=== PATIENT | female | born 1965 | race Caucasian/White ===

== ENCOUNTER 2016-12-18 11:02 | Inpatient (IN) | payer OTHER ==
[~2016-12-18] VITALS: Ht 172.7 cm; Wt 79.5 kg
[~2016-12-18 11:02] MED LIST: METO25TA91 PO; NORT25CA PO
[2016-12-18] MEDS ORDERED: SODIUM CHLORIDE 0.9% 1,000ML IVBOLUS ONE (11:30)
[2016-12-18] MEDS ORDERED: SODIUM CHLORIDE FLUSH 10ML SYR IVF ONE (11:30)
[2016-12-18] MEDS ORDERED: AMIT10TA PO (11:56)
[2016-12-18 11:58] LABS: BLOOD UREA NITROGEN 45 mg/dL (7-18)
[2016-12-18 12:03] LABS: ASPARTATE AMINO TRANSFERASE 25 U/L (15-37)
[2016-12-18] MEDS ORDERED: PANTOPRAZOLE 80 MG in SODIUM CHLORIDE 0.9% 50 ML IV ONE (12:30)
[2016-12-18] MEDS ORDERED: PANTOPRAZOLE 80 MG in SODIUM CHLORIDE 0.9% 100 ML IV SCH (12:30)
[2016-12-18 12:52] LABS: IS PT STATUS REG ER OR PRE ER? YES
[2016-12-18] MEDS: PANTOPRAZOLE 80 MG in SODIUM CHLORIDE 0.9% 100 ML IV SCH (13:35)
[2016-12-18] MEDS ORDERED: ONDANSETRON 2MG/ML, 2ML IVPush PRN (14:00)
[2016-12-18 14:52] VITALS: BP_SYST 111
[2016-12-18] MEDS ORDERED: FENTANYL PF 100 MCG/2ML ONE (16:03)
[2016-12-18] MEDS ORDERED: MIDAZOLAM 1 MG/ML, 5ML ONE (16:04)
[2016-12-18] MEDS ORDERED: EPINEPHRINE SYRINGE 0.1 MG/ML, 10ML ONE (16:46)
[2016-12-18] MEDS: D5%-0.45NACL+KCL 20MEQ 1,000 ML IV SCH (17:02)
[2016-12-18 17:06] VITALS: BP 109/70
[2016-12-18 19:26] VITALS: BP 124/78
[2016-12-18] MEDS: ACETAMINOPHEN 325 MG TABLET PO PRN (21:20)
[2016-12-18] MEDS: DIPHENHYDRAMINE/ZINC CRM 2%, 30GM TP PRN (23:20)
[2016-12-18] MEDS: morphine SULFATE 10 MG/ML, 1ML IVPush PRN (23:29)
[2016-12-19] MEDS: PANTOPRAZOLE 80 MG in SODIUM CHLORIDE 0.9% 100 ML IV SCH ×3 (00:50→20:43)
[2016-12-19 01:15] VITALS: BP 122/74
[2016-12-19] MEDS: D5%-0.45NACL+KCL 20MEQ 1,000 ML IV SCH ×3 (02:44→23:23)
[2016-12-19] MEDS: morphine SULFATE 10 MG/ML, 1ML IVPush PRN (04:45)
[2016-12-19 05:34] LABS: BLOOD UREA NITROGEN 17 mg/dL (7-18)
[2016-12-19 05:37] LABS: ASPARTATE AMINO TRANSFERASE 17 U/L (15-37)
[2016-12-19 07:30] VITALS: BP 102/62
[2016-12-19] MEDS ORDERED: HYDROcodone/APAP 5/325 TABLET PO PRN (08:30)
[2016-12-19] MEDS ORDERED: PROMETHAZINE 25 MG/ML, 1ML IM PRN (12:30)
[2016-12-19] MEDS ORDERED: ONDANSETRON 2MG/ML, 2ML IVPush PRN (12:30)
[2016-12-19 14:55] VITALS: BP 102/64
[2016-12-19 19:16] VITALS: BP 109/67
[2016-12-19] MEDS: DIPHENHYDRAMINE/ZINC CRM 2%, 30GM TP PRN (20:50)
[2016-12-20 01:44] VITALS: BP 98/61
[2016-12-20 05:56] LABS: TOTAL IRON BINDING CAPACITY 288 mcg/dL (250-450)
[2016-12-20 06:36] VITALS: BP 103/68
[2016-12-20] MEDS: PANTOPRAZOLE 80 MG in SODIUM CHLORIDE 0.9% 100 ML IV SCH (08:31)
[2016-12-20] MEDS ORDERED: OMEP20CA14 PO (09:43)
[2016-12-20] MEDS ORDERED: IRON45TA6 PO (11:29)
[2016-12-20] MEDS ORDERED: DOCU-30 PO (11:31)
[2016-12-20] MEDS: ACETAMINOPHEN 325 MG TABLET PO PRN (12:04)
== END 2016-12-20 12:34 | disposition home or self-care (01) | DRG 378 ==
LOC: ED 12:21 → EDIP 12:22 → ED 12:44 → 4WST 15:04 → DCLOUNGE 12-20 12:15
PROVIDERS: ADMIT Family Medicine; ATTEND Student in an Organized Health Care Education/Training Program
PROC: 0DJ08ZZ Inspection of Upper Intestinal Tract, Via Natural or Artificial Opening Endoscopic (ICD-10-PCS; principal; 2016-12-18 16:00)
DX: K25.4 Chronic or unspecified gastric ulcer with hemorrhage (principal); D62 Acute posthemorrhagic anemia; K21.9 Gastro-esophageal reflux disease without esophagitis; F41.9 Anxiety disorder, unspecified; Z90.49 Acquired absence of other specified parts of digestive tract; Z80.0 Family history of malignant neoplasm of digestive organs; Z82.49 Family history of ischemic heart disease and other diseases of the circulatory system; E78.5 Hyperlipidemia, unspecified; F32.9 Major depressive disorder, single episode, unspecified; Z88.8 Allergy status to other drugs, medicaments and biological substances; Z79.899 Other long term (current) drug therapy
CPT/HCPCS: 36415; 71010; 80053; 83540; 83550; 83690; 84484; 85014; 85018; 85025; 85610; 85730; 86850; 86900; 93005; 99152; 99153; 99285; J2250; J2405; J2550; J3010; C9113; J2270; J3480; J7030

== ENCOUNTER 2019-01-19 22:51 | Emergency (ER) | payer OTHER ==
[~2019-01-19] VITALS: Ht 167.6 cm; Wt 81.9 kg
[2019-01-19 22:53] VITALS: BP 165/91
== END 2019-01-20 00:01 | disposition home or self-care (01) ==
LOC: ED 23:50
DX: B34.9 Viral infection, unspecified (principal); J06.9 Acute upper respiratory infection, unspecified
CPT/HCPCS: 71045; 87081; 87880; 99284

== ENCOUNTER 2019-01-21 22:38 | Emergency (ER) | payer OTHER ==
[~2019-01-21] VITALS: Ht 167.6 cm; Wt 81.9 kg
[~2019-01-21 22:38] MED LIST changes: +AMIT10TA PO; +DOCU-131 PO; +IRON45TA6 PO; -NORT25CA PO; +NORT25CA78 PO; +OMEP20CA14 PO
[2019-01-21 22:39] VITALS: BP 163/82
[2019-01-21] MEDS ORDERED: MAALOX/HYOSCYAMINE/LIDOCAINE 45 ML BTL ONE (23:18)
[2019-01-21] MEDS ORDERED: CEFDINIR 300 MG CAPSULE ONE (23:18)
--- NOTE | 2019-01-21 23:24 | NUR ---
CLARITIN REQUEST FORM TO PHARMACY
[2019-01-21] MEDS ORDERED: OXYMETAZOLINE NASAL SPRAY 0.05%,30ML ONE (23:27)
[2019-01-21] MEDS ORDERED: CEFDINIR 300 MG CAPSULE PO ONE (23:30)
[2019-01-21] MEDS ORDERED: MAALOX/HYOSCYAMINE/LIDOCAINE 45 ML BTL PO ONE (23:30)
[2019-01-21] MEDS ORDERED: LORATADINE/PSE 5/120MG TAB.ER.12H PO ONE (23:30)
[2019-01-21] MEDS ORDERED: KETOROLAC 30 MG/1 ML ONE (23:39)
[2019-01-22] MEDS ORDERED: NEOSPORIN OINT. PKT 1 PACKET ONE (00:16)
[2019-01-22] MEDS ORDERED: OXYMETAZOLINE NASAL SPRAY 0.05%, 15ML NAS ONE (00:30)
[2019-01-22] MEDS ORDERED: KETOROLAC 30 MG/1 ML IM ONE (00:30)
== END 2019-01-22 00:49 | disposition home or self-care (01) ==
LOC: ED 01-22 00:09
DX: H66.003 Acute suppurative otitis media without spontaneous rupture of ear drum, bilateral (principal); J20.9 Acute bronchitis, unspecified; H10.021 Other mucopurulent conjunctivitis, right eye; J00 Acute nasopharyngitis [common cold]; R04.0 Epistaxis
CPT/HCPCS: 96372; 99284; J1885

== ENCOUNTER 2019-01-29 16:19 | Outpatient (CLI) | payer OTHER | END 2019-01-29 23:59 | disposition home or self-care (01) | LOC: LAB 16:19 | PROVIDERS: ATTEND Internal Medicine | DX: R21 Rash and other nonspecific skin eruption (principal) | CPT/HCPCS: 36415; 86694; 86695; 86696; 86787 ==

== ENCOUNTER 2019-06-26 18:52 | Emergency (ER) | payer OTHER ==
[~2019-06-26] VITALS: Ht 167.6 cm; Wt 83.4 kg
--- NOTE | 2019-06-26 19:04 | NUR ---
PT TO ROOM FROM LOBBY
--- NOTE | 2019-06-26 19:16 | NUR ---
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 REPORTS NAUSEA, LIGHT SENSISTIVITY, DIZZINESS RELATED TO LEMONS. DENIES HEAD TRAUMA, LOC, ANY OTHER C/O AT THIS TIME. REPORTS TAKING TYLENOL THIS AM, AND IMITREX AT 1PM WITH NO RELEIF.
[2019-06-26] MEDS ORDERED: PROCHLORPERAZINE 5 MG/ML, 2ML ONE (19:22)
[2019-06-26] MEDS ORDERED: KETOROLAC 30 MG/1 ML ONE (19:22)
[2019-06-26] MEDS ORDERED: DIPHENHYDRAMINE 25 MG CAPSULE ONE (19:23)
[2019-06-26] MEDS ORDERED: KETOROLAC 30 MG/1 ML IVPush ONE (19:30)
[2019-06-26] MEDS ORDERED: PROCHLORPERAZINE 5 MG/ML, 2ML IVPush ONE (19:30)
[2019-06-26] MEDS ORDERED: DIPHENHYDRAMINE 25 MG CAPSULE PO ONE (19:30)
--- NOTE | 2019-06-26 20:02 | NUR ---
PT REPORTS DECREASED TO 5/10 LEMONS/PAIN AFTER RECIEVING MEDICATIONS.
[2019-06-26] MEDS ORDERED: OXYcodone/APAP 5/325MG TABLET ONE (20:04)
[2019-06-26 20:42] VITALS: BP 151/92
== END 2019-06-26 20:45 | disposition home or self-care (01) ==
LOC: ED 20:15
DX: G43.109 Migraine with aura, not intractable, without status migrainosus (principal); I10 Essential (primary) hypertension; R42 Dizziness and giddiness
CPT/HCPCS: 96374; 96375; 99283; J0780; J1885; Q0163

== ENCOUNTER 2020-02-11 18:23 | Emergency (ER) | payer OTHER ==
[~2020-02-11] VITALS: Ht 167.6 cm; Wt 78.8 kg
[~2020-02-11 18:23] MED LIST changes: -OMEP20CA14 PO; +OMEP20CA20 PO
--- NOTE | 2020-02-11 19:25 | NUR ---
WEB PAGE DEVELOPER: PT AMBULATORY TO ROOM WITH STEADY GAIT WITH KENIA KHAN AT THIS TIME FROM [facility].
--- NOTE | 2020-02-11 19:42 | NUR ---
PT CAME IN CO OF CHEST PAIN, ABD PAIN, NV X 2-3 DAYS. PT ALSO STATES HER BP HAS BEEN UNSUALLY HIGH AND WAS GETTING READINGS OF 180/100 AT HOME. PT IS RESTING IN [facility], ACCOMPANIED BY SISTER. EKG COMPELTED. CONNECTED TO MONITORING EQUIPMENT
[2020-02-11] MEDS ORDERED: MAALOX/HYOSCYAMINE/LIDOCAINE 45 ML BTL ONE (20:29)
[2020-02-11] MEDS ORDERED: MAALOX/HYOSCYAMINE/LIDOCAINE 45 ML BTL PO ONE (20:30)
[2020-02-11 20:39] LABS: MICROSCOPIC AUTO
[2020-02-11 21:00] LABS: BASOPHILS # (AUTO) 0.03 x10^3/uL (0-0.1); BASOPHILS % (AUTO) 0 % (0-1); EOSINOPHILS # (AUTO) 0.17 x10^3/uL (0-0.4); EOSINOPHILS % (AUTO) 3 % (1-7); LYMPHOCYTES # (AUTO) 2.45 x10^3/uL (1-3.4); LYMPHOCYTES % (AUTO) 41 % (22-44); MD NO; MEAN CORPUSCULAR HEMOGLOBIN 31.7 pg (27.0-34.8); MEAN CORPUSCULAR HGB CONC 33.9 g/dL (32.4-35.8); MEAN CORPUSCULAR VOLUME 93.6 fL (80-100); MEAN PLATELET VOLUME 8.4 fL (7.4-10.4); MONOCYTES % (AUTO) 8 % (2-9); NEUTROPHILS # (AUTO) 2.87 x10^3/uL (1.8-6.8); NEUTROPHILS % (AUTO) 48 % (42-75); PLATELET COUNT 302 x10^3/uL (130-400); RED BLOOD COUNT 4.17 x10^6/uL (3.82-5.3); RED CELL DISTRIBUTION WIDTH 13.4 % (9.6-15.2)
[2020-02-11 21:11] LABS: ALANINE AMINOTRANSFERASE 181 U/L (12-78); ANION GAP 6 mmol/L (5-15); CALCIUM 8.7 mg/dL (8.5-10.1); CHLORIDE 107 mmol/L (98-107)
[2020-02-11 21:16] LABS: ALKALINE PHOSPHATASE 150 U/L (45-117); BILIRUBIN,TOTAL 0.7 mg/dL (0.2-1.0); TOTAL PROTEIN 7.5 g/dL (6.4-8.2); TROPONIN I < 0.015 ng/mL (0.000-0.045)
[2020-02-11 23:21] VITALS: BP 116/70
== END 2020-02-11 23:27 | disposition home or self-care (01) ==
LOC: ED 21:47
DX: K29.00 Acute gastritis without bleeding (principal); N30.01 Acute cystitis with hematuria; I10 Essential (primary) hypertension; R94.5 Abnormal results of liver function studies; R51 Headache; R94.31 Abnormal electrocardiogram [ECG] [EKG]; Z90.49 Acquired absence of other specified parts of digestive tract
CPT/HCPCS: 36415; 74022; 76700; 80053; 81001; 83690; 84443; 84484; 85025; 87086; 93005; 99285

== ENCOUNTER 2021-03-08 17:47 | Emergency (ER) | payer SELFPAY ==
[~2021-03-08] VITALS: Ht 167.6 cm; Wt 83.1 kg
[2021-03-08] MEDS ORDERED: SODIUM CHLORIDE 0.9% 1,000ML IVBOLUS ONE (19:00)
[2021-03-08] MEDS ORDERED: SODIUM CHLORIDE FLUSH 10ML SYR IVF ONE (19:00)
[2021-03-08 19:34] LABS: ALANINE AMINOTRANSFERASE 42 U/L (12-78); ANION GAP 6 mmol/L (5-15); CHLORIDE 107 mmol/L (98-107); CREATININE 0.85 mg/dL (0.55-1.02)
[2021-03-08 19:35] LABS: BASOPHILS % (AUTO) 1 % (0-1); EOSINOPHILS % (AUTO) 3 % (1-7); LYMPHOCYTES % (AUTO) 38 % (22-44); MEAN CORPUSCULAR HEMOGLOBIN 31.7 pg (27.0-34.8); MEAN PLATELET VOLUME 8.8 fL (7.4-10.4); MONOCYTES % (AUTO) 7 % (2-9); NEUTROPHILS % (AUTO) 51 % (42-75); PLATELET COUNT 280 x10^3/uL (130-400); RED BLOOD COUNT 4.16 x10^6/uL (3.82-5.3); RED CELL DISTRIBUTION WIDTH 13.1 % (9.6-15.2)
[2021-03-08 19:36] LABS: ALKALINE PHOSPHATASE 82 U/L (45-117); BILIRUBIN,TOTAL 0.5 mg/dL (0.2-1.0); TOTAL PROTEIN 7.1 g/dL (6.4-8.2)
[2021-03-08 20:27] VITALS: BP 147/84
[2021-03-08 20:38] LABS: MICROSCOPIC NOT IND
--- NOTE | 2021-03-08 21:07 | NUR ---
Patient/Caregiver given discharge instructions and they have confirmed that they understand the instructions. Patient ambulatory with steady gait. NAD, all questions answered appropriately, denies additional needs at this time. No personal belongings left in room after discharge.
== END 2021-03-08 21:08 | disposition home or self-care (01) ==
LOC: ED 20:55
DX: S39.012A Strain of muscle, fascia and tendon of lower back, initial encounter (principal); I10 Essential (primary) hypertension; X58.XXXA Exposure to other specified factors, initial encounter; Y93.89 Activity, other specified; Y92.89 Other specified places as the place of occurrence of the external cause; Y99.8 Other external cause status
CPT/HCPCS: 36415; 74176; 80053; 81003; 85025; 99284